=== PATIENT | female | born 1950 | race Caucasian/White ===

== ENCOUNTER → 2021-05-14 10:28 | Outpatient (CLI) | payer MEDICARE, OTHER, SELFPAY ==
--- NOTE | 2021-05-14 | DI.NM.S_ITS ---
PROCEDURE: NM BONE SCAN WHOLE BODY RADIOPHARMACEUTICAL: 18.1 mCi Tc-99m MDP IV. INDICATIONS: Pain in left hip TECHNIQUE: Delayed whole-body scintigrams were obtained approximately 3-4 hours after intravenous injection of radiotracer. Anterior and posterior views were acquired from vertex to feet. Additional left and right oblique views of the pelvis and hips were obtained. COMPARISON: [facility] [place], [place], XR PELVIS WITH LATERAL HIP LEFT, 05/03/2021, 11:42. FINDINGS: Bilateral hip arthroplasties. Mild, symmetrically increased activity around the hip prosthesis is seen bilaterally, most likely secondary to postsurgical change. No lesions are identified in skull, sternum, clavicles, scapulae, ribs, bony pelvis, and visualized shafts of the long bones. There are foci of increased uptake in lower cervical spine, upper thoracic spine and lower lumbar spine are seen, most likely secondary to degenerative disc and facet disease; early metastasis to spine could be obscured by degenerative changes. There are foci of increased periarticular activity involving shoulders, sternoclavicular joints, wrists, hands, SI joints, right ankle and both feet, compatible with degenerative/arthritic changes. IMPRESSION: 1. Bilateral hip arthroplasties. Mild, symmetrically increased uptake in hips is noted, most compatible with postsurgical change. Recommend radiographic correlation. 2. Degenerative/arthritic changes in spine and multiple peripheral joints. Radiographic correlation is recommend. Dictated by: Carolyn Dinh M.D. on 05/14/2021 at 14:48 Approved by: Carolyn Dinh M.D. on 05/14/2021 at 14:54
== END ==
PROVIDERS: PCP Nurse Practitioner Family; Referring Provider Orthopaedic Surgery; Visit Provider Orthopaedic Surgery
DX: M25.552 Pain in left hip (principal); Z96.643 Presence of artificial hip joint, bilateral
CPT/HCPCS: 78306; A9503

== ENCOUNTER → 2023-04-08 08:06 | Outpatient (CLI) | payer MEDICARE, OTHER, SELFPAY ==
--- NOTE | 2023-04-08 | DI.MRI.S_ITS ---
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 In cases with scoliosis, additional coronal T2 fast spin echo may be performed. COMPARISON: None. FINDINGS: Image quality: Excellent. Alignment and Curvature: Grade 1 anterolisthesis of L4 on L5 and grade 1 retrolisthesis of L5 on S1. Bone Marrow: Modic type 1 degenerative endplate changes are most pronounced at L4-5 and L5-S1. Marrow is of normal overall signal. No acute vertebral body compression fractures. Spinal Cord: Conus medullaris terminates at the L1-L2 level. Visualized cord demonstrates normal signal and size. Paraspinous Soft Tissues: No paravertebral masses. Renal cysts. T12-L1: No central canal or neural foraminal stenosis. L1-L2: Disc desiccation. Facet arthropathy. No central canal or neural foraminal stenosis. L2-L3: Disc desiccation. Facet hypertrophy. Epidural lipomatosis. Mild central canal stenosis. Mild bilateral neural foraminal stenosis. L3-L4: Disc desiccation and mild disc bulge. Facet hypertrophy. Epidural lipomatosis. Mild to moderate central canal stenosis. Mild bilateral neural foraminal stenosis. L4-L5: Severe disc desiccation and height loss. Posterior disc extrusion. Facet hypertrophy. Thickening of ligamentum flavum. Severe central canal stenosis. Severe left and moderate to severe right neural foraminal stenosis. L5-S1: Severe disc desiccation height loss. Disc bulge and left paracentral and subarticular disc extrusion extending inferiorly. This area narrows the left lateral recess with likely impingement of the descending left S1 nerve root. Mild central canal stenosis. Facet arthropathy. Severe left and moderate to severe right neural foraminal stenosis. IMPRESSION: 1. Multilevel degenerative changes of the lumbar spine are most severe L4-5 and L5-S1. 2. At L4-5, there is severe central canal stenosis, severe left and moderate to severe right neural foraminal stenosis. 3. At L5-S1, there is a left subarticular disc extrusion severely narrowing the left lateral recess with likely impingement of the descending left S1 nerve root. There is severe left and moderate to severe right neural foraminal stenosis. 4. Additional mild degenerative changes as described above. Dictated by: Reagan Juarez M.D. on 04/08/2023 at 10:43 Approved by: Reagan Juarez M.D. on 04/08/2023 at 10:50
== END ==
PROVIDERS: PCP Nurse Practitioner Family; Referring Provider Orthopaedic Surgery; Visit Provider Orthopaedic Surgery
DX: M47.816 Spondylosis without myelopathy or radiculopathy, lumbar region (principal); M47.817 Spondylosis without myelopathy or radiculopathy, lumbosacral region; M48.061 Spinal stenosis, lumbar region without neurogenic claudication; M48.07 Spinal stenosis, lumbosacral region; M51.27 Other intervertebral disc displacement, lumbosacral region; G89.29 Other chronic pain
CPT/HCPCS: 72148